=== PATIENT | male | born 2005 | race Caucasian/White ===

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

== ENCOUNTER 2025-02-11 13:34 | Emergency (ER) | payer BC ==
[2025-02-11] MEDS ORDERED: Acetaminophen 325 MG TAB ONE (14:29)
== END 2025-02-11 16:18 | disposition home or self-care (01) ==
LOC: NAV ERS 13:34
DX: S39.012A Strain of muscle, fascia and tendon of lower back, initial encounter (principal); S29.012A Strain of muscle and tendon of back wall of thorax, initial encounter; S93.402A Sprain of unspecified ligament of left ankle, initial encounter; V69.59XA Passenger in heavy transport vehicle injured in collision with other motor vehicles in traffic accident, initial encounter
CPT/HCPCS: 72128; 72131

== ENCOUNTER 2025-02-24 21:11 | Emergency (ER) | payer BC | END 2025-02-24 22:40 | disposition home or self-care (01) | LOC: NAV ERS 21:11 | DX: S62.635A Displaced fracture of distal phalanx of left ring finger, initial encounter for closed fracture (principal); S67.191A Crushing injury of left index finger, initial encounter; S60.132A Contusion of left middle finger with damage to nail, initial encounter; W23.1XXA Caught, crushed, jammed, or pinched between stationary objects, initial encounter | CPT/HCPCS: 99283 ==